=== PATIENT | male | born 1970 | race Two or more races ===

== ENCOUNTER 2023-05-18 11:33 | Emergency (ER) | payer MEDICARE, OTHER ==
[~2023-05-18] VITALS: Ht 177.8 cm; Wt 77.1 kg
[2023-05-18] MEDS ORDERED: TDAP [DIPH/PERTUSSIS/TET] 0.5 ML VIAL IM ONE (13:03)
[2023-05-18] MEDS ORDERED: HYDROCODONE/APAP 5/325MG TABLET ONE (13:03)
[2023-05-18] MEDS: HYDROCODONE/APAP 5/325MG TABLET PO ONE (13:06)
[2023-05-18] MEDS: TDAP [DIPH/PERTUSSIS/TET] 0.5 ML VIAL IM ONE (13:06)
[2023-05-18] MEDS: LIDOCAINE 1% INJ 50 ML MDV IJ ONE (14:04)
[2023-05-18] MEDS ORDERED: FLUORESCEIN SODIUM OPHTH 1 EA STRIP ONE (15:13)
[2023-05-18] MEDS ORDERED: TETRAcaine 5 ML BOTTLE ONE (15:14)
[2023-05-18] MEDS: FLUORESCEIN SODIUM OPHTH 1 EA STRIP OP ONE (15:15)
[2023-05-18] MEDS: TETRAcaine 5 ML BOTTLE RIGHTEYE ONE (15:15)
[2023-05-18] MEDS ORDERED: OFLO5DRO RIGHTEYE (15:30)
[2023-05-18 17:05] VITALS: BP 157/88; TEMP 98; O2SAT 98
== END 2023-05-18 17:06 ==
LOC: ER 11:50
DX: S02.2XXA Fracture of nasal bones, initial encounter for closed fracture (principal); S01.111A Laceration without foreign body of right eyelid and periocular area, initial encounter; S01.411A Laceration without foreign body of right cheek and temporomandibular area, initial encounter; G30.9 Alzheimer's disease, unspecified; F02.80 Dementia in other diseases classified elsewhere, unspecified severity, without behavioral disturbance, psychotic disturbance, mood disturbance, and anxiety; E11.9 Type 2 diabetes mellitus without complications; F41.8 Other specified anxiety disorders; Y04.0XXA Assault by unarmed brawl or fight, initial encounter; Y93.89 Activity, other specified; Y92.89 Other specified places as the place of occurrence of the external cause; Y99.8 Other external cause status
CPT/HCPCS: 12013; 70450; 70486; 90471; 90715; 99285; A6403